=== PATIENT | male | born 1990 | race Caucasian/White ===

== ENCOUNTER → 2021-10-23 13:10 | Outpatient (BNVA) | payer SELFPAY | PROVIDERS: Family Provider Nurse Practitioner; PCP Nurse Practitioner; Visit Provider Nurse Practitioner Family | DX: F10.11 Alcohol abuse, in remission (principal); F41.9 Anxiety disorder, unspecified; R51.9 Headache, unspecified; F43.10 Post-traumatic stress disorder, unspecified; R07.89 Other chest pain; K29.60 Other gastritis without bleeding; R53.83 Other fatigue; Z76.89 Persons encountering health services in other specified circumstances | CPT/HCPCS: 80053; 80061; 82607; 82746; 83550 ==

== ENCOUNTER 2022-05-11 18:25 | Emergency (ER) | payer SELFPAY ==
[2022-05-11 18:31] VITALS: BP 135/86; PULSE 81; RESP 20; TEMP 36.2; O2SAT 93; BMI 26.6
--- NOTE | 2022-05-11 18:40 | XRR_ITS ---
PROCEDURE INFORMATION: Exam: XR Left Hand Exam date and time: 05/11/2022 6:47 PM Age: 31 years old Clinical indication: Injury or trauma; Fall; Blunt trauma (contusions or hematomas); Hand; Left; Injury details: Cuts on top of fingers TECHNIQUE: Imaging protocol: Radiologic exam of the left hand. Views: 3 or more views. COMPARISON: No relevant prior studies available. FINDINGS: Bones/joints: No acute fracture. Probable old healed 5th metacarpal fracture. Soft tissues: Small posterior radiopaque densities in the soft tissues of the proximal 4th finger. XR/XR hand LT min 3V* [id number] IMPRESSION: 1. No acute skeletal finding. 2. Small foreign bodies in the skin or soft tissues of the posterior 4th finger.
--- NOTE | 2022-05-11 18:47 | PC.NURSE ---
small area of skin missing to knuckles of left hand index and middle fingers. small superficial laceration to side of ring finger. no active bleeding.
--- NOTE | 2022-05-11 19:02 | W.ED.UPPEXIN ---
HPI - Extremity Injury (Upper) General: Chief Complaint: Wound/Laceration Stated Complaint: left hand lac Time Seen by Provider: 05/11/22 18:28 Source: patient Mode of arrival: ambulatory Limitations: no limitations History of Present Illness: Patient is a 31-year-old male who presents to ED today for evaluation of a left hand injury. Patient states just earlier today he was pushing a shopping cart when he accidentally tripped and fell and scraped his left hand. Patient's tetanus is up-to-date. He denies any other injuries or complaints at this time. complaint: injury to: left, hand and finger Onset (ago): hour(s) Other Extremity Injury: Left: fingers and hand Other injuries: none Place: outdoors (parking lot) Severity: moderate Relieving factors: none Exacerbating factors: movement of extremity Context: direct blow Associated symptoms: Reports no associated symptoms; Denies weakness in extremities Treatments prior to arrival: bandage Review of Systems Musc: Reports: extremity pain (L hand) Skin/Breast: Reports: other (abrasions L fingers) Neuro: Denies: numbness in extremities, weakness in extremities or sensory changes [facility] ED PFSH: Medical History Psychiatric care Social History Smoking and tobacco status: never smoked Physical Exam Const: COMMON NORMALS: no acute distress, average body habitus, patient oriented x3, no limitations, healthy appearing, alert and well nourished Extremity: COMMON NORMALS: full ROM and capillary refill normal NARRATIVE EXTREMITY EXAM: abrasions mainly to L 2-4 digits; no lacerations that require repair; no bony deformities noted; full ROM of fingers; patient with very low pain tolerance/uncooperative with majority of exam GENERAL: Yes normal exam except as noted Neuro: COMMON NORMALS: patient oriented x3, moves all extremities, no focal motor deficits and no sensory deficits noted SENSORIUM/ORIENTATION: Yes alert Skin: NARRATIVE SKIN EXAM: see above for pertinent skin findings TRAUMA: abrasion Course Vital Signs: Vital signs: Vital Signs Temperature 97.1 F L 05/11/22 18:31 Pulse Rate 81 05/11/22 18:31 Respiratory Rate 20 H 05/11/22 18:31 Blood Pressure 135/86 05/11/22 18:31 Pulse Oximetry 93 05/11/22 18:31 Oxygen Delivery Me thod 05/11/22 18:31 MDM - Extremity Injury (Upper) Medical Decision Making No bony injuries on XR-small fb noted most likely gravel. Wounds were copiously irrigated and dressed. Will place on antibiotics. Recommend keeping wounds clean with warm soap and water at home. Wound/infection precautions discussed. Lab Data Radiology Impressions Hand X-Ray 05/11/22 18:40 IMPRESSION: 1. No acute skeletal finding. 2. Small foreign bodies in the skin or soft tissues of the posterior 4th finger. Discharge Plan Discharge Patient Disposition: Home Clinical Impression: Abrasion of multiple sites of left hand and finger Qualifiers: Encounter type: initial encounter Qualified Code(s): S60.512A - Abrasion of left hand, initial encounter Condition: Stable Prescriptions: New cephalexin 500 mg capsule 500 mg PO Q6H 7 Days Qty: 28 0RF No Action pantoprazole [Protonix] 40 mg tablet,delayed release (DR/EC) 40 mg PO DAILY 30 Days Qty: 30 6RF ferrous sulfate 325 mg (65 mg iron) tablet 325 mg PO BID 30 Days Qty: 60 3RF simvastatin 20 mg tablet 20 mg PO DAILY 30 Days Qty: 30 3RF Discharge Orders: Discharge ED (Routine); Ordered 05/11/22 Ordered By: Farrah Edwards Referrals: Maria Victoria Abernathy FNP-C [Primary Care Provider] - Patient Instructions: Abrasion (ED), Skin Tear (ED) Coding 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
== END 2022-05-11 19:28 | disposition home or self-care (01) ==
PROVIDERS: Emergency Provider Physician Assistant; Family Provider Nurse Practitioner; PCP Nurse Practitioner
DX: S60.512A Abrasion of left hand, initial encounter (principal); W01.0XXA Fall on same level from slipping, tripping and stumbling without subsequent striking against object, initial encounter
CPT/HCPCS: 73130; 99283

== ENCOUNTER → 2022-11-22 15:08 | Outpatient (BNVA) | payer SELFPAY | PROVIDERS: Family Provider Nurse Practitioner; PCP Nurse Practitioner; Visit Provider Nurse Practitioner Family | DX: R39.198 Other difficulties with micturition (principal); R10.9 Unspecified abdominal pain; R63.4 Abnormal weight loss; M54.50 Low back pain, unspecified; R11.0 Nausea; K29.60 Other gastritis without bleeding; N39.0 Urinary tract infection, site not specified | CPT/HCPCS: 80053; 80061 ==

== ENCOUNTER → 2024-01-31 13:05 | Outpatient (BNVA) | payer OTHER, SELFPAY | PROVIDERS: Family Provider Nurse Practitioner; PCP Nurse Practitioner; Visit Provider Registered Nurse Neonatal Intensive Care | DX: M25.571 Pain in right ankle and joints of right foot (principal); S99.922A Unspecified injury of left foot, initial encounter; X58.XXXA Exposure to other specified factors, initial encounter | CPT/HCPCS: 73610 ==

== ENCOUNTER 2024-03-01 13:32 | Outpatient (RCR) | payer OTHER, SELFPAY | END 2024-03-09 23:59 | disposition home or self-care (01) | LOC: SPT 13:32 | PROVIDERS: Visit Provider Family Medicine | DX: S90.31XD Contusion of right foot, subsequent encounter (principal); S86.011D Strain of right Achilles tendon, subsequent encounter; X58.XXXD Exposure to other specified factors, subsequent encounter | CPT/HCPCS: 97110; 97140; 97161 ==

== ENCOUNTER 2024-03-10 06:30 | Outpatient (RCR) | payer OTHER, SELFPAY | END 2024-03-26 09:01 | disposition home or self-care (01) | LOC: SPT 06:30 | PROVIDERS: Visit Provider Family Medicine | DX: S90.31XD Contusion of right foot, subsequent encounter (principal); S86.011D Strain of right Achilles tendon, subsequent encounter; X58.XXXD Exposure to other specified factors, subsequent encounter | CPT/HCPCS: 97110 ==

== ENCOUNTER 2024-04-13 05:37 | Emergency (ER) | payer OTHER, SELFPAY ==
[2024-04-13 05:40] VITALS: BP 134/100; PULSE 100; RESP 18; TEMP 36.3; O2SAT 100; BMI 27.8
--- NOTE | 2024-04-13 05:55 | ED_ITS ---
HPI - Male Genitourinary 2 General: Chief complaint: Urogenital-Male Stated complaint: L kidney Pain Time Seen by Provider: 04/13/24 05:50 History of Present Illness: 33-year-old male with sudden onset of le ft flank pain while he was on the way to work this morning is already resolved. He still has a slight ache there. He has not previously had any kidney stones that he is aware of. He has not noticed any hematuria has had some slight discomfort with urination no fever sweats or chills no injury to the area no back problems in the past. Associated symptoms: Reports dysuria (Mild discomfort) Related Data Previous Rx's ?Medication ?Instructions ?Recorded pantoprazole 40 mg tablet,delayed 40 mg PO BID 30 days #60 tabs 11/22/22 release (Protonix) Allergies Allergy/AdvReac Type Severity Reaction Status Date / Time No Known Allergies Allergy Verified 04/12/24 08:27 Review of Systems 2 Const: Denies: fever(s) or chills Card: Denies: chest pain Resp: Denies: dyspnea GI: Denies: abdominal pain : Reports: flank pain and dysuria (Mild discomfort); Denies: urinary frequency or urinary urgency Musc: Denies: neck pain or back pain Skin/Breast: Denies: rash PFSH ED 2 PFSH: Medical History (Updated 04/13/24 @ 06:40 by Meek Johns DO) GERD (gastroesophageal reflux disease) History of ETOH abuse Social History Smoking and tobacco/nicotine status: never used tobacco/nicotine Physical Exam 2 Const: COMMON NORMALS: no acute distress GENERAL APPEARANCE: cooperative and comfortable ORIENTATION/CONSCIOUSNESS: Yes awake, Yes oriented to person, Yes oriented to place and Yes oriented to time HENMT: COMMON NORMALS: normocephalic, atraumatic and hearing grossly normal bilaterally HEAD & SCALP: normocephalic and atraumatic Resp: COMMON NORMALS: normal respiratory effort, No retractions, No use of accessory muscles and clear to auscultation bilaterally AUSCULTATION: clear to auscultation bilaterally Cardio: COMMON NORMALS: regular rate, regular rhythm and No murmurs present (Cardio) RATE: regular rate RHYTHM: regular rhythm GI: COMMON NORMALS: Soft to palpation and No hepatosplenomegaly present A USCULTATION: Yes normoactive bowel sounds PALPATION: Yes Soft to palpation, No Tenderness to palpation present (GI), No Guarding due to palpation present (GI) and Yes No hepatosplenomegaly present : BLADDER/KIDNEY EXAM: Yes CVA tenderness (Mild) on the left Back/Pelvis: GENERAL BACK: Yes CVA tenderness (Mild) Extremity: COMMON NORMALS: normal to inspection, capillary refill normal, no clubbing, cyanosis or edema, no calf tenderness and no pedal edema Neuro: SENSORIUM/ORIENTATION: Yes oriented to person, Yes oriented to place and Yes oriented to time Skin: COMMON NORMALS: no rashes or lesions noted GENERAL SKIN EXAM: no rashes or lesions noted Course 2 Vital Signs: Vital signs: Vital Signs Temperature 97.4 F L 04/13/24 05:40 Pulse Rate 83 04/13/24 07:04 Respiratory Rate 18 04/13/24 05:40 Blood Pressure 110/83 04/13/24 07:04 Pulse Oximetry 98 04/13/24 07:04 Oxygen Delivery Me thod Room Air 04/13/24 05:40 MDM - Male Medical Decision Making Based on the history and the CT findings patient recently passed kidney stone 3 mm there is no sign of infection. Will have him strain his urine his pain is already relieved. Discharge patient home he can use [id number] Tylenol ibuprofen or Aleve for discomfort. Strain urine to collect and analyzed. Follow-up with primary care doctor return if he has further problems Medical Records I reviewed the patient's medical records. Lab Data I reviewed the patient's lab results. 04/13/24 05:48 04/13/24 05:48 Radiology Impressions Abdomen/Pelvis CT 04/13/24 06:01 IMPRESSION: 3 mm midline vesicular calculus, presumably recently passed given the history. COMMENTS: Consistent with the [employer]'s Incidental Findings Committee white paper (J Am Chantel Radiol 2018): Any incidental renal lesion less than 1 cm or classified as too small to characterize, or any incidental cystic renal lesion characterized as simple-appearing, is likely benign. No follow-up imaging is recommended for these lesions per consensus recommendations based on imaging criteria. Laboratory Results WBC 7.94 10^3/uL (3.29-11.43) 04/13/24 05:48 RBC 4.99 10^6/uL (3.85-5.65) 04/13/24 05:48 Hgb 15.40 g/dL (11.27-16.99) 04/13/24 05:48 Hct 45.1 % (37-53) 04/13/24 05:48 MCV 90.4 fl (82-101) 04/13/24 05:48 MCH 30.9 pg (27-33) 04/13/24 05:48 MCHC 34.1 g/dL (30-55) 04/13/24 05:48 RDW 12.8 % (12.1-15.1) 04/13/24 05:48 Plt Count 196 10^3/cmm (157-399) 04/13/24 05:48 MPV 10.7 fL (7.4-10.4) H 04/13/24 05:48 Neut % (Auto) 52.8 % 04/13/24 05:48 Lymph % (Auto) 38.7 % 04/13/24 05:48 [place] % (Auto) 4.5 % 04/13/24 05:48 Eos % (Auto) 2.9 % 04/13/24 05:48 Baso % (Auto) 0.6 % 04/13/24 05:48 Neut # (Auto) 4.19 10^3/uL (1.8-7.7) 04/13/24 05:48 Lymph # (Auto) 3.1 10^3/uL (0.8-4.8) 04/13/24 05:48 [place] # (Auto) 0.4 10^3/uL (0.2-0.9) 04/13/24 05:48 Eos # (Auto) 0.2 10^3/uL (0.0-0.8) 04/13/24 05:48 Baso # (Auto) 0.1 10^3/uL (0.0-0.1) 04/13/24 05:48 Nucleated RBC % (auto) 0 % 04/13/24 05:48 Nucleated RBCs # 0.0 /100WBC 04/13/24 05:48 Sodium 137 mmol/L (136-145) 04/13/24 05:48 Potassium 3.7 mmol/L (3.5-5.1) 04/13/24 05:48 Chloride 99 mmol/L (98-107) 04/13/24 05:48 Carbon Dioxide 28 mmol/L (22-29) 04/13/24 05:48 Anion Gap 13.7 (5-19) 04/13/24 05:48 BUN 13 mg/dL (6-20) 04/13/24 05:48 Creatinine 1.0 mg/dL (0.7-1.2) 04/13/24 05:48 GFR Calculation 85.0 mL/min (90-130) L 04/13/24 05:48 Glucose 152 mg/dL (65-115) H 04/13/24 05:48 Calculated Osmolality 287 mOsm/kg (285-295) 04/13/24 05:48 Calcium 9.2 mg/dL (8.5-10.5) 04/13/24 05:48 Total Bilirubin 0.4 mg/dL (0.15-1.2) 04/13/24 05:48 AST 12 U/L (0-40) 04/13/24 05:48 ALT 17 U/L (0-41) 04/13/24 05:48 Alkaline Phosphatase 80 U/L (40-130) 04/13/24 05:48 Total Protein 7.3 g/dL (6.6-8.7) 04/13/24 05:48 Albumin 4.7 g/dL (3.5-5.2) 04/13/24 05:48 Globulin 2.6 g/dL (1.3-4.6) 04/13/24 05:48 Urine Color Yellow (Yellow) 04/13/24 06:02 Urine Appearance Clear (CLEAR) 04/13/24 06:02 Urine pH 5.5 (5-7) 04/13/24 06:02 Ur Specific [place] 1.028 (1.005-1.030) 04/13/24 06:02 Urine Protein Trace (Negative) A 04/13/24 06:02 Urine Glucose (UA) Negative (Normal) 04/13/24 06:02 Urine Ketones Negative (Negative) 04/13/24 06:02 Urine Blood 3+ (Negative) A 04/13/24 06:02 Urine Nitrate Negative (Negative) 04/13/24 06:02 Urine Bilirubin Negative (Negative) 04/13/24 06:02 Urine Urobilinogen 0.2 mg/dL (Negative) 04/13/24 06:02 Ur Leukocyte Esterase Negative (Negative) 04/13/24 06:02 Urine RBC 50-80 /hpf (0-2) H 04/13/24 06:02 Urine WBC None /hpf (0-5) 04/13/24 06:02 Ur Squamous Epith Cells None /hpf (0-5) 04/13/24 06:02 Amorphous Sediment Not Reportable 04/13/24 06:02 Urine Bacteria 1+ /hpf (NONE) H 04/13/24 06:02 All radiology interpretation(s) finalized by discharge Discharge Plan Discharge Patient Disposition: Home Clinical Impression: Left nephrolithiasis Condition: Stable Prescriptions: No Action pantoprazole [Protonix] 40 mg tablet,delayed release (DR/EC) 40 mg PO BID 30 Days Qty: 60 0RF Discharge Orders: Discharge ED (Routine); Ordered 04/13/24 Ordered By: Meek Johns Patient Instructions: Opioid Safety, Pain Management Activity Restrictions/Additional Instructions: Thank you for choosing [facility] for your healthcare needs today. It is very important that you follow up as instructed or that you return to the Emergency Department should you have concerns or if your condition changes or worsens in any way. You are seen in the emergency room with left flank pain that had largely resolved by the time he arrived. Scan shows you passed a kidney stone that was 3 mm in size. It is currently in your bladder at the time of the scan. This will likely pass without significant difficulty from the bladder. Since you not previously had a kidney stone you should strain your urine to collect this to have it analyzed. Follow-up with your primary care doctor. You can use Tylenol or ibuprofen for pain. 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
--- NOTE | 2024-04-13 06:01 | CTR_ITS ---
PROCEDURE INFORMATION: Exam: CT Abdomen And Pelvis Without Contrast Exam date and time: 04/13/2024 6:08 AM Age: 33 years old Clinical indication: Abdominal pain; Flank; Left; Additional info: Flank pain TECHNIQUE: Imaging protocol: Computed tomography of the abdomen and pelvis without contrast. Radiation optimization: All CT scans at this facility use at least one of these dose optimization techniques: automated exposure control; mA and/or kV adjustment per patient size (includes targeted exams where dose is matched to clinical indication); or iterative reconstruction. COMPARISON: No relevant prior studies available. RADIATION DOSE METRICS: Total DLP (mGy-cm): 543.13 FINDINGS: Liver: Normal. No mass. Gallbladder and biliary ducts: Normal. No calcified stones. No ductal dilation. Pancreas: Normal. No ductal dilation. Spleen: Normal. No splenomegaly. Adrenal glands: Normal. No mass. Kidneys and ureters: Nonobstructing renal calculi on each side, left greater than right. 3 mm midline vesicular calculus probably recently passed. Small right renal cyst. Stomach and bowel: Unremarkable. No obstruction. No mucosal thickening. Appendix: No evidence of appendicitis. Intraperitoneal space: Unremarkable. No free air. No significant fluid collection. Vasculature: Unremarkable. No abdominal aortic aneurysm. Lymph nodes: Unremarkable. No enlarged lymph nodes. Urinary bladder: Unremarkable as visualized. Reproductive: Unremarkable as visualized. Bones/joints: Unremarkable. No acute fracture. Soft tissues: Unremarkable. CT/CT kidney stone [id number] IMPRESSION: 3 mm midline vesicular calculus, presumably recently passed given the history. COMMENTS: Consistent with the [employer]'s Incidental Findings Committee white paper (J Am Chantel Radiol 2018): Any incidental renal lesion less than 1 cm or classified as too small to characterize, or any incidental cystic renal lesion characterized as simple-appearing, is likely benign. No follow-up imaging is recommended for these lesions per consensus recommendations based on imaging criteria.
[2024-04-13 06:12] LABS: Basophils # 0.1 10^3/uL (0.0-0.1); Basophils % 0.6 %; Eosinophils # 0.2 10^3/uL (0.0-0.8); Eosinophils % 2.9 %; Hematocrit 45.1 % (37-53); Lymphocytes # 3.1 10^3/uL (0.8-4.8); Lymphocytes % 38.7 %; Mean Corpuscular HGB Conc 34.1 g/dL (30-55); Mean Corpuscular Hemoglobin 30.9 pg (27-33); Mean Corpuscular Volume 90.4 fl (82-101); Mean Platelet Volume 10.7 fL (7.4-10.4); Monocytes # 0.4 10^3/uL (0.2-0.9); Monocytes % 4.5 %; Neutrophils # 4.19 10^3/uL (1.8-7.7); Neutrophils % 52.8 %; Nucleated Red Blood Cells % 0 %; Platelet Count 196 10^3/cmm (157-399); Red Blood Count 4.99 10^6/uL (3.85-5.65); Red Cell Distribution Width 12.8 % (12.1-15.1); White Blood Count 7.94 10^3/uL (3.29-11.43)
[2024-04-13 06:24] LABS: Bilirubin Urine Negative (Negative); Blood Urine 3+ (Negative); Glucose Urine UA Negative (Normal); Ketones Urine Negative (Negative); Leukocyte Esterase Urine Negative (Negative); Nitrate Urine Negative (Negative); Protein Urine Trace (Negative); Specific Gravity, Urine 1.028 (1.005-1.030); Urine Appearance Clear (CLEAR); Urine Color Yellow (Yellow); Urobilinogen Urine 0.2 mg/dL (Negative); pH Urine 5.5 (5-7)
[2024-04-13 06:32] LABS: Alanine Aminotransferase 17 U/L (0-41); Albumin Level 4.7 g/dL (3.5-5.2); Alkaline Phosphatase 80 U/L (40-130); Anion Gap 13.7 (5-19); Aspartate Amino Transferase 12 U/L (0-40); Blood Urea Nitrogen 13 mg/dL (6-20); Calcium 9.2 mg/dL (8.5-10.5); Carbon Dioxide 28 mmol/L (22-29); Chloride 99 mmol/L (98-107); Creatinine Clr Calc Pharmacy 108.2708; Globulin 2.6 g/dL (1.3-4.6); Glucose 152 mg/dL (65-115); Osmolality Calculated 287 mOsm/kg (285-295); Potassium 3.7 mmol/L (3.5-5.1); Sodium 137 mmol/L (136-145); Total Bilirubin 0.4 mg/dL (0.15-1.2); Total Protein 7.3 g/dL (6.6-8.7)
[2024-04-13 06:38] VITALS: PULSE 78; O2SAT 100
[2024-04-13 06:48] LABS: UA Manual Slide Review YES
[2024-04-13 06:49] LABS: Add Urine Culture? Yes; Add Urine Microscopic? YES; Bacteria Urine 1+ /hpf; RBC Urine 50-80 /hpf (0-2)
[2024-04-13] MEDS: ketorolac 30 mg/mL INJ IVP (06:58)
[2024-04-13 07:04] VITALS: BP 110/83; PULSE 83; O2SAT 98
== END 2024-04-13 07:05 | disposition home or self-care (01) ==
PROVIDERS: Emergency Medicine; Emergency Provider Family Medicine
DX: N20.0 Calculus of kidney (principal)
CPT/HCPCS: 36415; 74176; 80053; 81001; 85025; 87086; 96374; 99285; J1885